=== PATIENT | female | born 1980 | race Caucasian/White ===

== ENCOUNTER 2017-11-12 23:56 | Emergency (ER) | payer OTHER ==
[~2017-11-12] VITALS: Ht 157.5 cm; Wt 74.1 kg
[~2017-11-12 23:56] MED LIST: BUPR8SUB19 SL; BUSP15TA70 PO; GABA-113 PO; PRENTAB26 PO; QUET1TAB34 PO
[2017-11-13 00:01] VITALS: TEMP 36.7; Ht 157.5 cm; Wt 74.1 kg
[2017-11-13] MEDS ORDERED: ONDANSETRON 4MG OD TAB PO STA (00:18)
--- NOTE | 2017-11-13 00:23 | EMERGENCY ROOM VISIT NOTE ---
History Report prepared by Chrisibdouglas: Neris Benties Under the Supervision of: Dr. Arthur Prieto D.O. First contact with patient: 00:14 Chief Complaint: DENTAL PAIN Stated Complaint: DENTAL PAIN Nursing Triage Summary: pt c/o left bottom toothpain and swelling, pain for past 2-3 days, swelling started this morning, she thinks it is draining in her mouth. History of Present Illness The patient is a 37 year old female who presents to the Emergency Room with complaints of persistent dental pain for the past 2 to 3 days. She states she has a left bottom tooth that is cracked and the area is swollen and painful. She believes she can taste puss coming from the area and rates her pain as a 3/ 10 in severity. The patient denies any fevers. She notes she does not currently have a dentist, which is why she came to the ED this evening. 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 A total of 10 systems reviewed and were otherwise negative. Past Medical & Surgical Medical Problems: (1) Carpal tunnel syndrome (2) Dental infection (3) Stomach ulcer Surgical Problems: (1) History of section (2) History of tonsillectomy Social History Smoking Status: Current Every Day Smoker Alcohol Use: none Drug Use: none Marital Status: Housing Status: lives with family Occupation Status: employed Current/Historical Medications Scheduled Buprenorphine Hcl (Subutex), 1 TAB SL BID Buspirone Hcl (Buspar), 15 MG PO TID Clindamycin Hcl (Cleocin), 150 MG PO QID Gabapentin (Neurontin), 300 MG PO BID Multivit/Min/Iron/Fol Ac/Pren ( Vitamin), 1 TAB PO DAILY Quetiapine Fumarate (Seroquel), 100 MG PO HS Allergies Coded Allergies: Nitrofurantoin (Unverified Allergy, Mild, IRRITATES IBS, 04/24/14) Penicillins (Verified Allergy, Unknown, AMOXICILLIN, 04/24/14) Latex (Unverified Adverse Reaction, Unknown, RASH, 04/24/14) Uncoded Allergies: [id number] (Allergy, Mild, IRRITATES IBS, 07/11/15) [id number] (Allergy, Unknown, RASH, 07/11/15) [id number] (Allergy, Unknown, AMOXICILLIN, 07/11/15) Physical Exam Vital Signs Date Time Temp Pulse Resp B/P (MAP) Pulse Ox O2 Delivery O2 Flow Rate FiO2 11/13/17 00:48 84 16 145/78 96 11/13/17 00:01 36.7 99 18 155/80 97 Room Air Physical Exam GENERAL: Patient is awake, alert, and in no acute distress. Patient is resting comfortably and showing no signs of anxiety EYES: The conjunctivae are clear. The pupils are round and reactive. EARS, NOSE, MOUTH AND THROAT: There was no trismus. There was dental caries on the left lower dentition. There was no gumline swelling or abscess noted. There was swelling of the buccal mucosa on the left. The nose is without any evidence of any deformity. Mucous membranes are moist tongue is midline NECK: The neck is nontender and supple. RESPIRATORY: Normal respiratory effort is noted there is no evidence of wheezing rhonchi or rales CARDIOVASCULAR: Regular rate and rhythm noted there no murmurs rubs or gallops normal S1 normal S2 GASTROINTESTINAL: The abdomen is soft. Bowel sounds are present in all quadrants. Abdomen is nontender MUSCULOSKELETAL/EXTREMITIES: There is no evidence of gross deformity full range of motion is noted in the hips and shoulders SKIN: There is no obvious evidence of any rash. There are no petechiae, pallor or cyanosis noted. NEUROLOGIC: Patient is awake alert and oriented x3 Medical Decision & Procedures Medications Administered Medications (Trade) Dose Ordered Sig/Aliya Route Start Time Stop Time Status Last Admin Dose Admin Clindamycin HCl (Cleocin Cap) 150 mg ONE ONCE PO 11/13/17 00:30 11/13/17 00:31 DC 11/13/17 00:27 150 MG Clindamycin HCl (Cleocin 150MG Home Pack) 1 homepack UD ONCE PO 11/13/17 00:30 11/13/17 00:31 DC 11/13/17 00:28 1 HOMEPACK Ondansetron HCl (Zofran Odt) 4 mg NOW STAT PO 11/13/17 00:18 11/13/17 00:20 DC 11/13/17 00:27 4 MG Ondansetron HCl (ZOFRAN ODT 4MG Home Pack) 1 homepack UD ONCE PO 11/13/17 00:30 11/13/17 00:31 DC 11/13/17 00:27 1 HOMEPACK ED Course 0016: The patient was evaluated in room C3. A complete history and physical examination were performed. 0018: Zofran 4 mg PO. 0030: Zofran 4 mg 1 homepack PO, Cleocin 150 mg 1 homepack PO, Cleocin 150 mg PO. 0045: I reevaluated the patient. She is feeling well and resting comfortably. I discussed her discharge instructions and she verbalized complete understanding and agreement. Medical Decision Prior records reviewed and summarized as above. Triage Nursing notes reviewed. The patient's history was concerning for swelling and redness of the skin. Differential diagnosis: Etiologies such as cellulitis, abscess, MRSA infection, DVT, necrotizing fasciitis, dermatitis, drug eruption, as well as others were entertained. The patient is a 37-year-old female who presented to the emergency department for evaluation of swelling. The patient noticed dental pain and then started to develop swelling at her left lower jawline. The patient has a history physical exam consistent with a dental infection. She has some buccal mucosal swelling. There is no area that could represent an abscess that I would feel comfortable doing an incision and drainage on at this time. She was started on antibiotics emergency department. She was encouraged to call her primary dentist to schedule a follow-up appointment otherwise she was encouraged to return to the emergency department immediately if symptoms change worsen or the need arises. Medication Reconcilliation Current Medication List: was personally reviewed by me Blood Pressure Screening Patient's blood pressure: Elevated blood pressure Blood pressure disposition: Referred to PCP Impression Primary Impression: Facial cellulitis Additional Impression: Dental infection Scribe Attestation The scribe's documentation has been prepared under my direction and personally reviewed by me in its entirety. I confirm that the note above accurately reflects all work, treatment, procedures, and medical decision making performed by me. Departure Information Dispostion Home / Self-Care Prescriptions Clindamycin Hcl (CLEOCIN) 150 Mg Cap 150 MG PO QID, #40 CAP Prov: Arthur Prieto, DO 11/13/17 Referrals No Doctor, Assigned (PCP) Patient Instructions ED Dental Abscess Facial Cellulitis, My [facility] Additional Instructions Continue using Motrin and Tylenol as directed for pain. Continue all antibiotics as prescribed. Call your primary dentist to schedule a follow-up appointment versus possible. Return to the emergency apartment immediately if symptoms change worsen or the need arises. Problem Qualifiers
[2017-11-13] MEDS ORDERED: CLIN150C PO (00:27)
[2017-11-13] MEDS ORDERED: CLINDAMYCIN 150MG HOME PACK PO ONE (00:30)
[2017-11-13] MEDS ORDERED: CLINDAMYCIN HCL 150 MG CAP PO ONE (00:30)
[2017-11-13] MEDS ORDERED: ONDANSETRON HOME PACK 4MG OD TAB PO ONE (00:30)
[2017-11-13 00:48] VITALS: BP 145/78; PULSE 84; O2SAT 96
== END 2017-11-13 00:50 | disposition home or self-care (01) ==
LOC: C.EDB 23:58 → C.EDC 11-13 00:50
DX: L03.211 Cellulitis of face (principal); K04.7 Periapical abscess without sinus; F17.200 Nicotine dependence, unspecified, uncomplicated